=== PATIENT | female | born 1950 | race Caucasian/White ===

== ENCOUNTER 2018-12-19 21:55 | Emergency (ER) | payer MEDICARE, OTHER ==
[2018-12-19 22:33] LABS: #Basophils 0.1 thou/uL (0.0-0.2); #Eosinphils 0.1 thou/uL (0.0-0.7); #Lymphocytes 2.2 thou/uL (1.20-3.40); #Monocytes 0.4 thou/uL (0.11-0.59); #Neutrophils 2.7 thou/uL (1.40-6.50); %Basophils 1.3 % (0.0-1.0); %Eosinophils 1.9 % (0.0-10.0); %Lymphocytes 39.5 % (21.0-51.0); %Monocytes 7.3 % (0.0-10.0); Hemoglobin 13.7 g/dL (12.0-16.0); Mean Corpuscular HGB CONC 34.4 g/dL (32.0-36.0); Mean Corpuscular Hemoglobin 29.8 pg (27.0-31.0); Mean Corpuscular Volume 86.7 fL (78.0-98.0); Mean Platelet Volume 8.5 fL (7.4-10.4); Platelet Count 213 thou/uL (130-400); RBC Distribution Width 11.4 % (11.5-14.5); White Blood Cell (WBC) Count 5.4 thou/uL (4.8-10.8)
[2018-12-19 22:41] LABS: INR-International Normal Ratio 1.1; PTT 38.2 SEC (22.9-36.1); Prothrombin Time 13.9 SEC (12.0-14.7)
--- NOTE | 2018-12-19 22:44 | CT ---
HEAD CT WITHOUT CONTRAST: 12/19/18 HISTORY: Difficulty moving tongue. Slurred speech, x3 days. COMPARISON: None. FINDINGS: No parenchymal hemorrhage. No extra-axial hematoma. No midline. Basilar cisterns are patent. Brain vo lume, age appropriate. Cortical seaman-white matter differentiation is preserved. No evidence of hydroc ephalus. Atherosclerosis of the cavernous carotid arteries. Adequate aeration of the sinuses and mastoid air c ells. Calvarium is intact. IMPRESSION: No acute intracranial process. POS: TIFF
[2018-12-19 22:51] LABS: ALT (SGPT) 13 U/L (8-55); AST (SGOT) 16 U/L (5-34); Albumin 4.2 g/dL (3.4-4.8); Alkaline Phosphatase 72 U/L (40-150); Anion Gap 14 mmol/L (10-20); BUN (Urea Nitrogen) 14 mg/dL (9.8-20.1); Bilirubin, Total 0.2 mg/dL (0.2-1.2); Calc. Creatinine Clearance 0 mL/min (70-130); Carbon Dioxide 26 mmol/L (23-31); Chloride 108 mmol/L (98-107); Estimated GFR-MDRD 79; Globulin 2.6 g/dL (2.4-3.5); Glucose 138 mg/dL (80-115); Potassium 3.1 mmol/L (3.5-5.1); Protein, Total 6.8 g/dL (6.0-8.3); Sodium 145 mmol/L (136-145)
[2018-12-19] MEDS ORDERED: Aspirin 325 MG TAB ONE (23:04)
[2018-12-19] MEDS ORDERED: Potassium Chloride 20 MEQ TAB ONE (23:04)
[2018-12-19] MEDS ORDERED: Aspirin Chewable 81 MG TAB ONE (23:05)
== END 2018-12-20 00:05 | disposition short-term general hospital (02) ==
LOC: MADERS 21:55
DX: G45.9 Transient cerebral ischemic attack, unspecified (principal); E87.6 Hypokalemia; E11.9 Type 2 diabetes mellitus without complications; I10 Essential (primary) hypertension; F32.9 Major depressive disorder, single episode, unspecified; Z79.84 Long term (current) use of oral hypoglycemic drugs; Z79.899 Other long term (current) drug therapy
CPT/HCPCS: 36416; 70450; 80053; 85025; 85610; 85730; 93005